=== PATIENT | female | born 1990 | race African-American/Black ===

== ENCOUNTER 2016-04-24 15:27 | Emergency (ER) | payer MEDICAID ==
[2016-04-24] MEDS ORDERED: MAG HYDROX/AL HYDROX/SIMETH 30 ML UDC PO STA (16:27)
[2016-04-24] MEDS ORDERED: LIDOCAINE VISCOUS 2% 15 ML UDC MM STA (16:27)
[2016-04-24] MEDS ORDERED: LIDOCAINE VISCOUS 2% 15 ML UDC MM ONE (16:29)
[2016-04-24] MEDS ORDERED: MAG HYDROX/AL HYDROX/SIMETH 30 ML UDC ONE (16:29)
== END 2016-04-24 16:36 | disposition home or self-care (01) ==
DX: R10.13 Epigastric pain (principal); R05 Cough; I10 Essential (primary) hypertension; F17.200 Nicotine dependence, unspecified, uncomplicated
CPT/HCPCS: 81025; 99283; A9270

== ENCOUNTER 2017-08-05 18:21 | Emergency (ER) | payer MEDICAID ==
[2017-08-05 19:07] LABS: BILIRUBIN,URINE NEGATIVE (NEGATIVE); GLUCOSE, URINE (UA) NEGATIVE (NEGATIVE); KETONES,URINE (UA) NEGATIVE (NEGATIVE); LEUKOCYTE ESTERASE, URINE NEGATIVE (NEGATIVE); NITRITE,URINE NEGATIVE (NEGATIVE); OCCULT BLOOD,URINE NEGATIVE (NEGATIVE); PROTEIN,URINE NEGATIVE (NEGATIVE); UROBILINOGEN,URINE 0.2 (NORMAL) E.U./dL (NORMAL)
[2017-08-05 19:10] LABS: CLARITY,URINE CLEAR (CLEAR); HCG UR QUAL NEGATIVE
[2017-08-05 20:12] LABS: BASOPHILS # (AUTO) 0.1 10^3/uL (0.0-0.1); BASOPHILS % (AUTO) 0.4 %; EOSINOPHILS # (AUTO) 0.2 10^3/uL (0.0-0.7); EOSINOPHILS % (AUTO) 1.5 %; HGB - HEMOGLOBIN 12.8 g/dL (12.0-16.0); LYMPHOCYTES # (AUTO) 1.4 10^3/uL (1.5-3.5); LYMPHOCYTES % (AUTO) 10.9 %; MEAN CORPUSCULAR HEMOGLOBIN 26.8 pg (27.0-31.0); MEAN CORPUSCULAR HGB CONC 32.4 g/dL (32.0-36.0); MEAN CORPUSCULAR VOLUME 82.8 fL (81.0-99.0); MEAN PLATELET VOLUME 9.2 fL (7.9-10.8); MONOCYTES # (AUTO) 0.5 10^3/uL (0.0-1.0); NEUTROPHILS # (AUTO) 10.6 10^3/uL (1.5-6.6); NEUTROPHILS % (AUTO) 83.2 %; PLT - PLATELET COUNT 201 10^3/uL (130-450); RED BLOOD COUNT 4.77 10^6/uL (4.20-5.40); RED CELL DISTRIBUTION WIDTH 13.1 % (12.0-15.0); WHITE BLOOD COUNT 12.7 x10^3/uL (4.8-10.8)
--- NOTE | 2017-08-05 20:18 | ED Physician Documentation ---
History of Present Illness - Stated complaint Stated Complaint: FEMALE - Chief complaint Chief Complaint: Abd Pain - History obtained from History obtained from: Patient, Family (mother) - History of Present Illness Timing: Other (5 months) Pain level max: 7 Pain level now: 5 Quality: aching, dull Improved by: nothing Worsened by: nothing - Additonal information Additional information: Patient is a 26-year-old female who has a Nexplanon implant in the left upper extremity for the past 3 years. She states for the past 5 months has had intermittent vaginal bleeding and spotting. Also has had intermittent abdominal pain, lower abdominal pain worsened today. Started this morning. Has been waxing and waning throughout the day. Has not taken anything for this. She is not sexually active. No vaginal bleeding or discharge. No itching. No dysuria, no urinary frequency. Has never had similar symptoms. Review of Systems Constitutional: denies: Fever, Chills Respiratory: denies: Cough GI: denies: Vomiting, Diarrhea : denies: Dysuria, Frequency, Hesitancy, Discharge Skin: denies: Rash Musculoskeletal: denies: Neck pain, Back pain Neurologic: denies: Headache PD PAST MEDICAL HISTORY - Past Medical History Cardiovascular: Hypertension Respiratory: None Endocrine/Autoimmune: None GI: None HEEL SEAT FITTER: None : None HEENT: None Psych: None Musculoskeletal: None Derm: None - Past Surgical History Past Surgical History: No - Present Medications Home Medications: Ambulatory Orders Medication Instructions Recorded Confirmed raNITIdine [Zantac] 150 mg PO DAILY #30 tablet 04/24/16 - Allergies Allergies/Adverse Reactions: Allergies Allergy/AdvReac Type Severity Reaction Status Date / Time No Known Drug Allergies Allergy Verified 08/05/17 18:54 - Social History Does the pt smoke?: Yes Smoking Status: Current every day smoker Does the pt drink ETOH?: No Does the pt have substance abuse?: No - Immunizations Immunizations are current?: Yes - POLST Patient has POLST: No PD ED PE NORMAL - Vitals Vital signs reviewed: Yes - General General: Alert and oriented X 3 - HEENT HEENT: Moist mucous membranes - Neck Neck: Supple, no meningeal sign - Cardiac Cardiac: RRR - Respiratory Respiratory: No respiratory distress, Clear bilaterally - Abdomen Abdomen: Soft, Non distended, Other (mild diffuse lower abd TTP without peritoneal signs) - Female Female : Pt declined - Derm Derm: Warm and dry - Neuro Neuro: Alert and oriented X 3 - Psych Psych: Normal mood, Normal affect Results - Vitals Vitals: Vital Signs - 24 hr 08/05/17 08/05/17 08/05/17 18:50 20:30 21:46 Temperature 37 C Heart Rate 82 75 68 Respiratory 16 18 16 Rate Blood Pressure 137/87 H 130/83 H 144/68 H O2 Saturation 97 100 95 Oxygen O2 Source Room air - Labs Labs: Laboratory Tests 08/05/17 08/05/17 08/05/17 19:01 20:04 20:04 WBC 12.7 H RBC 4.77 Hgb 12.8 Hct 39.5 MCV 82.8 MCH 26.8 L MCHC 32.4 RDW 13.1 Plt Count 201 MPV 9.2 Neut # (Auto) 10.6 H Lymph # (Auto) 1.4 L [place] # (Auto) 0.5 Eos # (Auto) 0.2 Baso # (Auto) 0.1 Absolute Nucleated RBC 0.00 Nucleated RBC % 0.0 Sodium 135 Potassium 3.5 Chloride 104 Carbon Dioxide 22 Anion Gap 9.0 BUN 13 Creatinine 0.7 Estimated GFR (MDRD) 125 Glucose 173 H Calcium 9.0 Total Bilirubin 0.7 AST 28 ALT 26 Alkaline Phosphatase 58 Total Protein 7.0 Albumin 4.3 Globulin 2.7 Albumin/Globulin Ratio 1.6 Lipase 35 Urine Color YELLOW Urine Clarity CLEAR Urine pH 7.0 Ur Specific [place] 1.025 Urine Protein NEGATIVE Urine Glucose (UA) NEGATIVE Urine Ketones NEGATIVE Urine Occult Blood NEGATIVE Urine Nitrite NEGATIVE Urine Bilirubin NEGATIVE Urine Urobilinogen 0.2 (NORMAL) Ur Leukocyte Esterase NEGATIVE Ur Microscopic Review NOT INDICATED Urine Culture Comments NOT INDICATED Urine HCG, Qual NEGATIVE - Rads (name of study) pelvic US Radiology: Prelim report reviewed, EMP read contemporaneously, See rad report ( Possible posterior fundal intramural fibroid measuring up to 2.2 cm. 2. Endometrial thickness within normal limits, with echogenic foci which may represent blood clots. No evidence of vascular mass seen. 3. Small free fluid in the pelvic cul-de-sac. ) PD MEDICAL DECISION MAKING - ED course Complexity details: reviewed results, re-evaluated patient, considered differential, d/w patient, d/w family ED course: Patient is a 26-year-old female who presents to the emergency department what appears to be Dysfunctional uterine bleeding. She also appears to have a posterior fundal intramural fibroid approximately 2.2 cm. She declines any pain medication here or for home. She will follow-up with her doctor and her line manager for further care. She is well-appearing, nontoxic. Afebrile. Patient counseled regarding signs and symptoms for which I believe and urgent re -evaluation would be necessary. Patient with good understanding of and agreement to plan and is comfortable going home at this time This document was made in part using voice recognition software. While efforts are made to proofread this document, sound alike and grammatical errors may occur. - Sepsis Event Vital Signs: Vital Signs - 24 hr 08/05/17 08/05/17 08/05/17 18:50 20:30 21:46 Temperature 37 C Heart Rate 82 75 68 Respiratory 16 18 16 Rate Blood Pressure 137/87 H 130/83 H 144/68 H O2 Saturation 97 100 95 Oxygen O2 Source Room air Departure - Departure Disposition: 01 Home, Self Care Clinical Impression: Dysfunctional uterine bleeding Uterine fibroid Qualifiers: Uterine leiomyoma location: unspecified location Qualified Code(s): D25.9 - Leiomyoma of uterus, unspecified Condition: Good Instructions: ED Bleed Irregular Vaginal, ED Fibroids Follow-Up: your,doctor in 1 week [Other] Comments: Return if you worsen. You can use Motrin or Tylenol as needed for pain. Your ultrasound appears as if you have a uterine fibroid today. Forms: Activity restrictions Discharge Date/Time: 08/05/17 21:46
[2017-08-05 20:21] LABS: ALBUMIN 4.3 g/dL (3.2-5.5); ALBUMIN/GLOBULIN RATIO 1.6 (1.0-2.2); BILIRUBIN,TOTAL 0.7 mg/dL (0.2-1.0); CREATININE 0.7 mg/dL (0.4-1.0)
--- NOTE | 2017-08-05 21:28 | Ultrasound Report ---
EXAM: PELVIC ULTRASOUND EXAM DATE: 08/05/2017 09:08 PM. CLINICAL HISTORY: Pelvic pain with dysfunctional uterine bleeding. COMPARISON: None. TECHNIQUE: Realtime transabdominal pelvic scan performed to identify the uterus and adnexa and as an overview of other pelvic structures, followed by transvaginal scan to provide greater detail of the u terus and adnexa, with static image documentation. FINDINGS: Uterus: 6.5 x 3.2 x 4.4 cm, volume 47 cc. Retroverted position. Normal overall size and echotexture. Masses: There is a possible posterior fundal intramural fibroid measuring up to 2.2 cm. Endometrium: Measuring 5 mm. Echogenic foci seen within the endometrial canal. Cervix: Unremarkable. Right Ovary: 4 x 1.6 x 2.4 cm, volume 8.2 cc. Normal echotexture and blood flow. Left Ovary: 3.7 x 1.8 x 3.3 cm, volume 11.3 cc. Normal echotexture and blood flow. Free Fluid: Small free fluid in the pelvic cul-de-sac. Other: None. IMPRESSION: 1. Possible posterior fundal intramural fibroid measuring up to 2.2 cm. 2. Endometrial thickness within normal limits, with echogenic foci which may represent blood clots. N o evidence of vascular mass seen. 3. Small free fluid in the pelvic cul-de-sac. [facility] Referring Provider Line: [phone] SITE ID: [id number]
--- NOTE | 2017-08-05 21:28 | Ultrasound Preliminary Report ---
Exam: US PELVIC W/TRANSVAG+DOPPLER LTD IMPRESSION: 1. Possible posterior fundal intramural fibroid measuring up to 2.2 cm. 2. Endometrial thickness within normal limits, with echogenic foci which may represent blood clots. N o evidence of vascular mass seen. 3. Small free fluid in the pelvic cul-de-sac. [facility] SITE ID: [id number]
[2017-08-05 21:46] VITALS: BP 144/68
== END 2017-08-05 21:46 | disposition home or self-care (01) ==
LOC: ED 18:21
DX: N93.8 Other specified abnormal uterine and vaginal bleeding (principal); D25.9 Leiomyoma of uterus, unspecified; I10 Essential (primary) hypertension; F17.200 Nicotine dependence, unspecified, uncomplicated
CPT/HCPCS: 36415; 76830; 76856; 80053; 81001; 81003; 81025; 83690; 85025; 87086; 93976; 99283

== ENCOUNTER 2017-10-23 18:33 | Outpatient (CLI) | payer MEDICAID ==
--- NOTE | 2017-10-24 08:07 | Ultrasound Report ---
Reason: OTHER SPECIFIED ABNORMAL UTERINE AND VAGINAL BLEED Procedure Date: 10/23/2017 Accession Number: [id number] / [id number] Procedure: US - Pelvic w/Transvaginal CPT Code: FULL RESULT: EXAM: PELVIC ULTRASOUND EXAM DATE: 10/23/2017 07:22 PM. CLINICAL HISTORY: Abnormal uterine bleeding. LMP 10/09/2017. COMPARISON: PEL NON OB W/TV DOP LTD 08/05/2017. TECHNIQUE: Realtime transabdominal pelvic scan performed to identify the uterus and adnexa and as an overview of other pelvic structures, followed by transvaginal scan to provide greater detail of the uterus and adnexa, with static image documentation. FINDINGS: Uterus: Retroverted position. 7.1 x 3.2 x 3.7 cm, volume 44 cc. Retroverted position. Overall homogeneous echotexture with a solitary posterior fundal intramural fibroid measuring 1.7 x 1.4 x 1.6 cm, previously 2.2 x 1.6 x 2.0 cm. Endometrium: 6 mm. Normal. Cervix: Unremarkable. Right Ovary: 3.2 x 1.4 x 2.0 cm, volume 5.0 cc. Normal echotexture. Left Ovary: 3.2 x 1.7 x 2.0 cm, volume 5.8 cc. Normal echotexture. Free Fluid: None. Other: None. IMPRESSION: 1. Stable to slightly decreased size of solitary intramural uterine fibroid. 2. Unremarkable sonographic appearance of the ovaries. [facility]
== END 2017-10-23 18:34 | disposition home or self-care (01) ==
LOC: DI 18:33
PROVIDERS: ATTEND Obstetrics & Gynecology
DX: N93.8 Other specified abnormal uterine and vaginal bleeding (principal); D25.1 Intramural leiomyoma of uterus
CPT/HCPCS: 76830; 76856

== ENCOUNTER 2018-10-12 15:00 | Outpatient (CLI) | payer OTHER ==
--- NOTE | 2018-10-13 18:48 | Ultrasound Report ---
Reason: TEST POSITIVE Procedure Date: 10/12/2018 Accession Number: [id number] / [id number] Procedure: US - OB First Trimester CPT Code: FULL RESULT: EXAM: FIRST TRIMESTER OBSTETRIC ULTRASOUND (Less than 11 weeks) EXAM DATE: 10/12/2018 03:17 PM. CLINICAL HISTORY: TEST POSITIVE. LMP: 08/17/2018. COMPARISONS: None. TECHNIQUE: Transabdominal and transvaginal ultrasound examination with static image documentation. CLINICAL DATES: TALON 05/24/2019 based on LMP. ASSESSMENT: Gestational Sac: Single intrauterine. Embryo: CRL (crown-rump length) 7 weeks 1 day mm = 05/30/2019. Cardiac activity: 139 beats per minute. Yolk sac: 3 mm. Amniotic fluid: Not accurately assessed at this gestational age. Early placenta: Not visible at this gestational age. Other: 1.9 x 1.5 cm perigestational fluid collection,. MATERNAL STRUCTURES: Uterus: Anteverted. Unremarkable. Cervix: Closed. Bilateral ovaries are unremarkable aside from a 1.8 cm left ovarian corpus luteum. Free Fluid: None. Other: None. IMPRESSION: 1. Single viable intrauterine at EGA 7 weeks 1 day with TALON 05/30/2019 based on crown-rump length, which is discordant with clinical dates. 2. Assigned dating is TALON 05/30/2019 based on current ultrasound. [facility]
== END 2018-10-12 15:01 | disposition home or self-care (01) ==
LOC: DI 15:00
PROVIDERS: ATTEND Nurse Practitioner Obstetrics & Gynecology
DX: Z32.01 Encounter for pregnancy test, result positive (principal)
CPT/HCPCS: 76801; 76817

== ENCOUNTER 2018-10-30 08:00 | Outpatient (CLI) | payer MEDICAID, OTHER ==
[2018-10-30 14:26] LABS: MUDS CUTOFF CONCENTRATIONS CUTOFF CONC BELOW:
[2018-10-30 14:37] LABS: BILIRUBIN,URINE NEGATIVE (NEGATIVE); GLUCOSE, URINE (UA) NEGATIVE (NEGATIVE); KETONES,URINE (UA) NEGATIVE (NEGATIVE); LEUKOCYTE ESTERASE, URINE NEGATIVE (NEGATIVE); NITRITE,URINE NEGATIVE (NEGATIVE); OCCULT BLOOD,URINE NEGATIVE (NEGATIVE); PROTEIN,URINE NEGATIVE (NEGATIVE); UROBILINOGEN,URINE 0.2 (NORMAL) E.U./dL (NORMAL)
[2018-10-30 14:48] LABS: CLARITY,URINE CLOUDY (CLEAR)
[2018-10-30 14:58] LABS: AMPHETAMINE SCREEN,URINE NEGATIVE (NEGATIVE); BENZODIAZEPINES SCREEN, URINE NEGATIVE (NEGATIVE); COCAINE SCREEN URINE NEGATIVE (NEGATIVE); METHADONE SCREEN, URINE NEGATIVE (NEGATIVE); METHAMPHETAMINES SCREEN, URINE NEGATIVE (NEGATIVE); OPIATE SCREEN, URINE NEGATIVE (NEGATIVE); OXYCODONE SCREEN, URINE NEGATIVE (NEGATIVE); PROPOXYPHENE SCREEN, URINE NEGATIVE (NEGATIVE); TRICYCLIC ANTIDEPRESSANT,URINE NEGATIVE (NEGATIVE)
[2018-10-30 15:06] LABS: BACTERIA,URINE Few /HPF (None Seen); RBC,URINE 0-5 /HPF (0-5); SQUAMOUS EPITHELIAL CELL,UR FEW Squamous (<= Few)
[2018-10-30 15:07] LABS: AMORPHOUS SEDIMENT,UR Marked /LPF; MUCUS,URINE Moderate Strands
[2018-10-30 15:08] LABS: CRYSTALS,URINE 11-25 Ca Oxalate /LPF
== END 2018-10-30 23:59 ==
LOC: LAB.R 08:00
PROVIDERS: ATTEND Nurse Practitioner Obstetrics & Gynecology
DX: Z36.89 Encounter for other specified antenatal screening (principal)
CPT/HCPCS: 80306; 81001; 87086

== ENCOUNTER 2018-11-02 15:44 | Outpatient (CLI) | payer MEDICAID ==
[2018-11-02 16:09] LABS: BASOPHILS % (AUTO) 0.5 %; EOSINOPHILS # (AUTO) 0.2 10^3/uL (0.0-0.7); EOSINOPHILS % (AUTO) 2.6 %; HGB - HEMOGLOBIN 11.1 g/dL (12.0-16.0); LYMPHOCYTES # (AUTO) 1.6 10^3/uL (1.5-3.5); LYMPHOCYTES % (AUTO) 18.5 %; MEAN CORPUSCULAR HEMOGLOBIN 26.7 pg (27.0-31.0); MEAN CORPUSCULAR HGB CONC 32.1 g/dL (32.0-36.0); MEAN CORPUSCULAR VOLUME 83.4 fL (81.0-99.0); MEAN PLATELET VOLUME 11.3 fL (7.9-10.8); MONOCYTES # (AUTO) 0.7 10^3/uL (0.0-1.0); MONOCYTES % (AUTO) 7.9 %; NEUTROPHILS # (AUTO) 6.1 10^3/uL (1.5-6.6); NEUTROPHILS % (AUTO) 70.3 %; PLT - PLATELET COUNT 192 10^3/uL (130-450); RED BLOOD COUNT 4.15 10^6/uL (4.20-5.40); RED CELL DISTRIBUTION WIDTH 12.9 % (12.0-15.0); WHITE BLOOD COUNT 8.7 x10^3/uL (4.8-10.8)
[2018-11-02 16:31] LABS: HB2 TOTAL 11.7 g/dL; HEMOGLOBIN A1C 0.44 g/dL; HEMOGLOBIN A1C % 5.6 % (4.6-6.2)
[2018-11-03 11:18] LABS: HEPATITIS B SURFACE ANTIGEN NON-REACTIVE (NON-REACTIVE); HEPATITIS C ANTIBODY NON-REACTIVE (NON-REACTIVE)
[2018-11-05 17:12] LABS: HIV AG/AB 4TH GEN NON-REACTIVE (NON-REACTIVE)
== END 2018-11-02 15:45 | disposition home or self-care (01) ==
LOC: LAB 15:44
PROVIDERS: ATTEND Nurse Practitioner Obstetrics & Gynecology
DX: Z36.89 Encounter for other specified antenatal screening (principal)
CPT/HCPCS: 36415; 81599; 83036; 85025; 86592; 86762; 86803; 86850; 86900; 86901; 87340; 87389

== ENCOUNTER 2018-12-31 08:41 | Outpatient (CLI) | payer MEDICAID ==
--- NOTE | 2018-12-31 11:43 | Ultrasound Report ---
Reason: ENC FOR SCREENING Procedure Date: 12/31/2018 Accession Number: [id number] / [id number] Procedure: US - OB Detailed Eval CPT Code: Final Report FULL RESULT: EXAM: COMPLETE OBSTETRICAL ULTRASOUND EXAM DATE: 12/31/2018 08:45 AM. CLINICAL HISTORY: anatomic survey. COMPARISON: None. TECHNIQUE: Real-time sonographic evaluation of the fetus performed by the arts and humanities council director. Multiple sales promotion representative static images were saved for review. Additional transvaginal imaging to more accurately evaluate cervical length/placental position/etc. DATING: Established EGA 19 weeks 3 days with TALON 05/24/2019 based on provided stated dating/LMP. EGA 18 weeks 4 days with TALON 05/30/2019 based on 10/12/2018 ultrasound. EGA 19 weeks 2 days with TALON 05/25/2019 based on the current ultrasound. GENERAL EVALUATION Wright . Cardiac activity: 153 bpm. movement: Visualized. Presentation: Cephalic. Placenta: Anterior position. No evidence for previa. Possible partial circumvallate uterus inferiorly Umbilical cord: 3 vessel cord. Central placental cord origin. Amniotic fluid: 13 cm MVP 3.8 cm. BIOMETRY Bi-Parietal Diameter (BPD): 4.4 cm, 19 weeks 2 days Head Circumference (HC): 16.4 cm, 19 weeks 1 day Abdominal Circumference (AC): 13.9 cm, 19 weeks 2 days Femur Length (FL): 3 cm, 19 weeks 2 days Estimated Weight: 283 g, 36 percentile for 19 weeks 3 days. ANATOMY The intracranial structures, profile, /nose/lips, spine, stomach, abdominal wall and cord insertion, diaphragm, kidneys, bladder, and extremities were visualized and demonstrate no abnormality. anatomy not visualized includes nasal bone, four-chamber heart, outflow tracts MATERNAL STRUCTURES Uterus: Unremarkable. Cervix: Long and closed. 4.5 centimeters length b Right ovary/adnexa: Unremarkable. Left ovary/adnexa: Unremarkable. Free fluid: None. IMPRESSION: 1. Wright live intrauterine with gestational age 19 weeks 3 days based on LMP. 2. Estimated weight is within expected limits for assigned dating. 3. anatomy not well seen includes nasal bone, four-chamber heart, outflow tracts. 4. Anterior placenta possible partial circumvallate placenta along inferior aspect [facility]
== END 2018-12-31 08:42 | disposition home or self-care (01) ==
LOC: DI 08:41
PROVIDERS: ATTEND Nurse Practitioner Obstetrics & Gynecology
DX: Z34.92 Encounter for supervision of normal pregnancy, unspecified, second trimester (principal)
CPT/HCPCS: 76811

== ENCOUNTER 2019-01-08 07:43 | Outpatient (CLI) | payer MEDICAID ==
--- NOTE | 2019-01-08 14:20 | Ultrasound Report ---
Reason: CIRCUMVALLATE PLACENTA, SECOND TRIMESTER Procedure Date: 01/08/2019 Accession Number: [id number] / [id number] Procedure: US - OB F/U or Repeat CPT Code: Final Report FULL RESULT: EXAM: FOLLOW-UP OBSTETRICAL ULTRASOUND EXAM DATE: 01/08/2019 09:06 AM. CLINICAL HISTORY: Circumvallate placenta, second trimester. COMPARISON: OB DETAILED EVAL 12/31/2018 8:45 AM. TECHNIQUE: Real-time sonographic evaluation of the fetus performed by the survey researcher. Multiple operations support representative static images were saved for review. DATING: Established EGA 20 weeks 4 days with TALON 05/24/2019 based on provider stated dating. EGA 19 weeks 3 days with TALON 05/30/2019 based on ultrasound 10/12/2018. GENERAL EVALUATION Wright . Cardiac activity: 151 bpm. movement: Visualized. Presentation: Breech Placenta: Anterior position. Stable tissue ridge along the inferior margin of the placenta possibly partial circumvallate placenta, similar to prior. Prominence of venous lakes in the adjacent placenta. Amniotic fluid: Normal. MARK 15 cm. MVP 4.2 cm. BIOMETRY Performed previously. ANATOMY Repeat anatomic survey shows normal appearance of the four-chamber heart view, ventricular outflow tracts, nasal bone, cord insertion, kidneys and diaphragm. MATERNAL STRUCTURES Not specifically reevaluated. IMPRESSION: 1. Wright live intrauterine with gestational age 20 weeks 4 days based on provider stated dating. 2. Normal appearance of four-chamber heart view, ventricular outflow tracts and nasal bone to complete previous anatomic survey. 3. Persistent ridge of tissue along the inferior placental margin possibly partial circumvallate placenta, similar to prior. [facility]
== END 2019-01-08 07:44 | disposition home or self-care (01) ==
LOC: DI 07:43
PROVIDERS: ATTEND Nurse Practitioner Obstetrics & Gynecology
DX: O43.112 Circumvallate placenta, second trimester (principal); Z3A.20 20 weeks gestation of pregnancy
CPT/HCPCS: 76816